=== PATIENT | female | born 1995 | race Caucasian/White ===

== ENCOUNTER 2017-04-15 01:33 | Emergency (ER) | payer OTHER ==
[~2017-04-15] VITALS: Ht 157.5 cm; Wt 46.0 kg
[2017-04-15 01:35] VITALS: Ht 157.5 cm; Wt 46.0 kg
[2017-04-15] MEDS ORDERED: TRIA15CR55 TOP (04:10)
--- NOTE | 2017-04-15 04:29 | ERD ---
ER Documentation Chief Complaint Date/Time DATE: 04/15/17 TIME: 04:27 Chief Complaint rashes on thighr since yesterday HPI This is a 21-year-old female presenting to the emergency department with patches of itchy rash on her lower extremities since yesterday. Patient is unsure what she may be allergic to. Patient states that there is no pain associated with it. She tried hydrocortisone without any relief ROS All systems reviewed and are negative except as per history of present illness. Medications Home Meds Active Scripts Triamcinolone Acetonide (Triamcinolone Acetonide) 0.1% - 15 Gm Cream.gm., 1 APPLIC TOP BID for 7 Days, #1 TUB Prov:SEVEN VELA PA-C 04/15/17 Allergies Allergies: Coded Allergies: penicillin (Verified Allergy, Intermediate, rash and hives, 07/25/16) Penicillins (Verified Allergy, Unknown, 07/25/16) PMhx/Soc History of Surgery: Yes (WISDOM TEETH) Anesthesia Reaction: No Hx Neurological Disorder: No Hx Cardiac Disorders: No Hx Psychiatric Problems: No Hx Alcohol Use: No Hx Substance Use: No Hx Tobacco Use: No Smoking Status: Never smoker Physical Exam Vitals Vital Signs Date Time Temp Pulse Resp B/P Pulse Ox O2 Delivery O2 Flow Rate FiO2 04/15/17 01:35 97.8 80 20 112/64 100 Physical Exam Const: [] Head: Atraumatic Eyes: Normal Conjunctiva ENT: Normal External Ears, Nose and Mouth. Neck: Full range of motion..~ No meningismus. Resp: Clear to auscultation bilaterally Cardio: Regular rate and rhythm, no murmurs Abd: Soft, non tender, non distended. Normal bowel sounds Skin: Erythematous patch behind left knee. erythematous rash on inner thigh Back: No midline or flank tenderness Ext: No cyanosis, or edema Neur: Awake and alert Psych: Normal Mood and Affect Procedures/MDM 19-year-old female presents to the emergency department with chief complaint of itchy rash which is likely due to a contact dermatitis. There was no evidence of anaphylaxis. Patient stable to be discharged home with prescription for triamcinolone cream. Discussed the follow-up primary care physician. Discussed return the ER for any worsening sinus symptoms. Patient understands and agrees with plan Departure Diagnosis: Primary Impression: Dermatitis Condition: Stable Patient Instructions: Contact Dermatitis Additional Instructions: FOLLOW UP WITH YOUR PRIMARY CARE PHYSICIAN TOMORROW.Return to this facility if you are not improving as expected. Take all medicines as directed. Return to this facility if you are not improving as expected. SEVEN VELA PA-C Apr 15, 2017 04:29
== END 2017-04-15 04:27 | disposition home or self-care (01) ==
LOC: FTE 01:33
DX: L30.9 Dermatitis, unspecified (principal)
CPT/HCPCS: 99283

== ENCOUNTER 2017-09-25 19:50 | Emergency (ER) | END 2017-09-26 00:58 | disposition home or self-care (01) ==

== ENCOUNTER 2018-06-18 22:15 | Emergency (ER) | END 2018-06-19 00:53 | disposition home or self-care (01) ==

== ENCOUNTER 2019-05-03 19:52 | Emergency (ER) | payer OTHER ==
[~2019-05-03] VITALS: Ht 154.9 cm; Wt 44.4 kg
[~2019-05-03 19:52] MED LIST: CIPR500T4 PO; CYCL10TA7 PO; DOCU-144 PO; HYDR-4011 PO; HYDR25SU23 PR; IBUP-1542 PO; NITR-58 PO; PHEN-538 PO; TRIA15CR55 TOP
[2019-05-03 19:55] VITALS: BP 113/63; PULSE 81; RESP 16; Ht 154.9 cm; Wt 44.4 kg
== END 2019-05-03 21:24 | disposition home or self-care (01) ==
LOC: FTE 19:52
DX: K64.9 Unspecified hemorrhoids (principal); J45.909 Unspecified asthma, uncomplicated
CPT/HCPCS: 99284